=== PATIENT | male | born 1970 | race Caucasian/White ===

== ENCOUNTER 2019-12-20 07:58 | Emergency (ER) | payer SELFPAY ==
[2019-12-20 08:07] VITALS: BP 143/94
[2019-12-20] MEDS ORDERED: NORMAL SALINE 1000 ML 1,000 ML IV ONE (09:26)
[2019-12-20 09:59] LABS: ABSOLUTE LYMPHOCYTES (AUTO) 0.7 10^3/uL (0.5-4.7); ABSOLUTE MONOCYTES (AUTO) 0.5 10^3/uL (0.1-1.4); ABSOLUTE NEUT (AUTO) 2.6 10^3/uL (1.7-8.2); BASOPHILS % (AUTO) 0.5 % (0-2); EOSINOPHILS % (AUTO) 0.9 % (0-6); HEMATOCRIT 43.8 % (37.9-51.0); HEMOGLOBIN 15.2 g/dL (13.5-17.0); LYMPHOCYTES % (AUTO) 18.7 % (13-45); MEAN CORPUSCULAR HEMOGLOBIN 36.4 pg (27.0-33.4); MEAN CORPUSCULAR HGB CONC 34.7 g/dL (32.0-36.0); MEAN CORPUSCULAR VOLUME 105 fl (80-97); MONOCYTES % (AUTO) 12.9 % (3-13); PLATELET COUNT 144 10^3/uL (150-450); RED BLOOD COUNT 4.17 10^6/uL (4.35-5.55); RED CELL DISTRIBUTION WIDTH 13.8 % (11.5-14.0); TOTAL CELLS COUNTED % (AUTO) 100 %; WHITE BLOOD COUNT 3.9 10^3/uL (4.0-10.5)
[2019-12-20 10:02] LABS: ALBUMIN 4.1 g/dL (3.5-5.0); ALKALINE PHOSPHATASE 54 U/L (38-126); ANION GAP 12 (5-19); ASPARTATE AMINO TRANSFERASE 167 U/L (17-59); BILIRUBIN,TOTAL 0.5 mg/dL (0.2-1.3); BLOOD UREA NITROGEN 3 mg/dL (7-20); CALCIUM 8.6 mg/dL (8.4-10.2); CARBON DIOXIDE 23 mmol/L (22-30); CHLORIDE 100 mmol/L (98-107); GLUCOSE 127 mg/dL (75-110); POTASSIUM 3.9 mmol/L (3.6-5.0); TOTAL PROTEIN 7.1 g/dL (6.3-8.2)
--- NOTE | 2019-12-20 10:05 | ER Document Report ---
ED General - General Chief Complaint: Low Back Pain Stated Complaint: BODY ACHES Time Seen by Provider: 12/20/19 08:37 - HPI Notes: Patient is a 49-year-old male who presents to the emergency department for evaluation of pain in his left leg as well as numbness. He states that over the last several months he has had intermittent numbness in his left leg. He states it comes with some shooting pain as well. He states most recently he is noticed it on the inner aspect of his foot. He denies any bowel or bladder incontinence , no saddle anesthesia, no focal numbness or weakness. At this point he states he is actually not having any numbness, not having any pain. He admits to drinking heavily. He states that since the COVID-19 crisis started, he has been ingesting approximately 20 beers daily. He denies any suicidal or homicidal ideations. He denies any visual or auditory hallucinations. He does state that he is experienced shaking and withdrawal symptoms before. He considered inpatient treatment, but states that at this time it is not possible given his profession. He states he does have help at home. He states a primary care provider had written him some Librium in the past, and he tolerated that well, was hopeful to receive something like that again. - Related Data Allergies/Adverse Reactions: No Known Allergies Allergy (Unverified 12/20/19 08:08) Home Medications: lisinopril -admits only taking intermittently Past Medical History - General Information source: Patient - Social History Smoking Status: Current Every Day Smoker Frequency of alcohol use: Heavy Family History: Reviewed & Not Pertinent Patient has suicidal ideation: No Patient has homicidal ideation: No - Past Medical History Cardiac Medical History: Reports: Hx Hypertension Past Surgical History: Reports: Hx Orthopedic Surgery - Ganglion cyst, left wrist Review of Systems - Review of Systems Musculoskeletal: See HPI Neurological/Psychological: See HPI -: Yes All other systems reviewed and negative Physical Exam - Vital signs Vitals: Temp Pulse Resp BP Pulse Ox 97.5 F 122 H 19 143/94 H 100 12/20/19 08:06 12/20/19 08:06 12/20/19 08:06 12/20/19 08:06 12/20/19 08:06 - Notes Notes: This is a pleasant 49-year-old male who appears stated age, no acute distress. Vital signs reviewed, please refer to chart. Head is normocephalic, atraumatic. Pupils equal round, reactive to light. Neck is supple without meningismus. Heart is regular rate and rhythm. Lungs are clear to auscultation bilaterally. Abdomen is soft, nontender, normoactive bowel sounds throughout. Examination of the spine yields no obvious deformity. No midline tenderness or step-off. No paraspinal musculature tenderness is appreciated. He has no piriformis te nderness to palpation. Negative straight leg raise. Strength is plus 5 out of 5 bilateral lower extremities. Patellar and Achilles reflexes are +2 and +1 respectively. Sensation is intact in bilateral lower extremities. Course - Re-evaluation Re-evalutation: 12/20/19 10:07 Patient presents to the emergency department for evaluation. Laboratory investigations were obtained, as the patient is tachycardic upon arrival. He is given IV fluids. The patient again expresses the fact that he is not interested in receiving inpatient alcohol treatment. He is awake and alert, cooperative, certainly has capacity. I will write him a small amount of Librium. He states he lives with his girlfriend, does have resources and does not live alone. In regards to his symptoms, they seem most consistent with sciatica, despite the fact that the patient is not currently having symptoms. I will write him a prescription for a Medrol Dosepak. He is also encouraged to take his lisinopril more regularly, and follow-up closely with his primary care doctor. He is amenable to this plan. I will give him outpatient referral for substance abuse issues. He is to return to the emergency department with worsening or new concerning symptoms of any sort. 12/20/19 10:13 - Vital Signs Vital signs: Temp Pulse Resp BP Pulse Ox 97.5 F 122 H 19 143/94 H 100 12/20/19 08:06 12/20/19 08:06 12/20/19 08:06 12/20/19 08:06 12/20/19 08:06 - Laboratory Result Diagrams: 12/20/19 09:33 12/20/19 09:33 Laboratory results interpreted by me: 12/20/19 12/20/19 09:33 09:33 WBC 3.9 L RBC 4.17 L MCV 105 H MCH 36.4 H Plt Count 144 L Sodium 135.4 L BUN 3 L Glucose 127 H AST 167 H ALT 93 H Discharge - Discharge Clinical Impression: Alcohol abuse Sciatica Qualifiers: Laterality: left Qualified Code(s): M54.32 - Sciatica, left side Condition: Stable Disposition: HOME, SELF-CARE Instructions: Sciatica ([facility]), Chronic Alcoholism ([facility]), Alcohol Withdrawl ([facility]) Additional Instructions: Your left leg pain and numbness is likely secondary to sciatica. Please take the Medrol Dosepak as prescribed until it is gone. If you develop difficulty urinating or moving your bowels, leaking of urine or fecal material, numbness in the genital area, or focal weakness, please return to the ER for further evaluation. You have stated you are not interested in inpatient rehab for your alcohol dependence at this time. Please take Librium as needed for significant withdrawal symptoms. You have also been given information on detox and substance abuse services in the region. If you develop confusion, increased agitation, vomiting, or any other new or concerning symptoms, please return immediately to the emergency department for evaluation.
== END 2019-12-20 10:34 | disposition home or self-care (01) ==
LOC: ER 07:58
DX: M54.42 Lumbago with sciatica, left side (principal); F10.10 Alcohol abuse, uncomplicated; F17.200 Nicotine dependence, unspecified, uncomplicated; I10 Essential (primary) hypertension; R00.0 Tachycardia, unspecified
CPT/HCPCS: 99283; 96360; 36415; 83690; 85025; 80053; J7030